=== PATIENT | female | born 1970 | race Caucasian/White ===

== ENCOUNTER 2019-05-04 00:01 | Observation (INO) ==
[2019-05-04 01:05] LABS: URINE SOURCE CLEAN CATCH
[2019-05-04 01:09] LABS: BASO# 0.01 X1000 (0.0-0.2); BASO% 0.1 % (0.0-0.8); EOS% 1.2 % (0.0-10.0); HEMATOCRIT 41.6 % (37.0-47.0); LYMPH# 2.48 X1000 (1.2-3.4); LYMPH% 30.1 % (20.5-51.1); MCH 28.5 PG (27-31); MCHC 33.7 g/dL (33-37); MCV 84.7 FL (81-99); MONO# 0.51 X1000 (0.11-0.59); MONO% 6.2 % (1.7-9.3); MPV 9.9 FL (7.4-10.4); NEUT# 5.15 X1000 (1.4-6.5); NEUT% 62.4 % (42.2-75.2); PLT 227 X1000 (130-400); RBC 4.91 XMIL (4.2-5.4); RDW 12.9 % (11.5-14.5); WBC 8.25 X1000 (4.8-10.8)
[2019-05-04 01:10] LABS: BILIRUBIN URINE NEGATIVE (NEGATIVE); BLOOD URINE NEGATIVE (NEGATIVE); COLOR YELLOW; GLUCOSE URINE NEGATIVE (NEGATIVE); KETONE URINE NEGATIVE (NEGATIVE); LEUKOCYTES URINE NEGATIVE (NEGATIVE); NITRITE URINE NEGATIVE (NEGATIVE); PROTEIN URINE NEGATIVE (NEGATIVE); SP GRAVITY URINE 1.013; TURBIDITY URINE CLEAR (CLEAR); UR EPITHELIAL CELLS <10 /HPF (<10); URINE BACTERIA NEGATIVE /HPF; URINE RBC <10 /HPF (<10); URINE WBC <10 /HPF (<10); UROBILINOGEN URINE NORMAL (NORMAL)
--- NOTE | 2019-05-04 01:13 | EKG Report ---
Test Performed on : 05/04/2019 00:11:26 AM Test Reason : Heart flutters/ history of heart issues Blood Pressure : / mmHG Vent. Rate : 087 BPM Atrial Rate : 087 BPM P-R Int : 186 ms QRS Dur : 092 ms QT Int : 386 ms P-R-T Axes : 009 054 063 degrees QTc Int : 464 ms Normal sinus rhythm. Normal ECG When compared with ECG of 04-OCT-2017 09:21, No significant change was found Unconfirmed Result
[2019-05-04 01:34] LABS: AGAP 16; ALB/GLOB RATIO 2.2; ALBUMIN 4.8 g/dL (3.5-5.0); ALKALINE PHOSPHATASE 66 U/L (32-104); BUN 11 mg/dL (8-22); CHLORIDE 102 mmol/L (98-107); COSMO 283; CREATININE 0.9 mg/dL (0.5-0.9); ESTIMATED GFR > 60; GLUCOSE 109 mg/dL (70-104); GOT 17 U/L (10-30); GPT 10 U/L (10-36); SODIUM 142 mmol/L (136-145); TCO2 24 mmol/L (25-35); TOTAL BILIRUBIN 0.36 mg/dL (0.20-1.00)
[2019-05-04] MEDS ORDERED: NS 1,000 ML IV ONE (01:53)
[2019-05-04] MEDS ORDERED: CARAFATE LIQUID PO ONE (01:53)
[2019-05-04] MEDS ORDERED: ZOFRAN IV ONE (01:53)
--- NOTE | 2019-05-04 03:04 | PROVIDER DOCUMENTATION ---
This chart was entered by Kirt Macario Scribe, acting as scribe for Saul Steiner MD. HPI-General Adult - General Chief Complaint: Anxiety Stated Complaint: HEART FLUTTERS/HISTORY OF HEART PROBLEMS Time Seen by Provider: 05/04/19 00:20 Source: patient Allergies/Adverse Reactions: Patient Allergies Allergy/AdvReac Type Severity Reaction Status Date / Time metronidazole [From Flagyl] Allergy Unknown HIVES Verified 07/29/18 14:03 Metronidazole HCl * Allergy Unknown HIVES Verified 07/29/18 14:03 [From Flagyl] sulfamethoxazole AdvReac CONSTIPATIO Verified 05/04/19 00:42 [From Bactrim] N trimethoprim [From Bactrim] AdvReac CONSTIPATIO Verified 05/04/19 00:42 N Home Medications: Home Medication List Medication Instructions Recorded Confirmed Last Taken Type Metoprolol Tartrate 100 mg PO BID 08/04/16 05/04/19 04/09/17 History Flecainide [Tambocor] 50 mg PO BID 05/04/19 05/04/19 Unknown History Pantoprazole [Protonix] 40 mg PO DAILY@0700 #30 tab 05/04/19 Unknown Rx - History of Present Illness -Gen Adult Nature of Presenting Problems: Pt is a 48 yof who presents to the ED with a CC of anxiety. Pt reports she has had a 'fluttering' in her lt chest/abdomen for two days. Pt denies any pain and describes it as a discomfort. Pt reports some recent stressors in her home life. Pt reports a hx of HTN. Pt denies any chest pain and shortness of breath. Pt also complains of urinary frequency and dysuria. Pt reports taking an old antibiotic prescription lately for a possible kidney infection. Location of Pain/Injury: reports: chest, generalized Pain Radiation: reports: no radiation Quality of Pain: reports: dull Severity: reports: mild Onset/Duration: reports: 2 days ago Timing: reports: still present Associated Symptoms: reports: anxiety, other Similar Symptoms Previously?: Yes Recently seen or treated by another doctor?: No Review of Systems - Adult - REVIEW OF SYSTEMS - ADULT Constitutional: reports: see HPI Eyes: reports: no symptoms reported Ears, Nose, Mouth & Throat: reports: no symptoms reported Cardiovascular: reports: see HPI, palpitations Respiratory: reports: no symptoms reported Gastrointestinal: reports: no symptoms reported Genitourinary: reports: no symptoms reported Musculoskeletal: reports: no symptoms reported Integumentary: reports: no symptoms reported Neurological: reports: no symptoms reported Psychiatric: reports: see HPI, anxiety Endocrine: reports: no symptoms reported Hematologic/Lymphatic: reports: no symptoms reported Allergic/Immunologic: reports: no symptoms reported All Other Systems: Reviewed and Negative Past History - Adult - PAST MEDICAL HISTORY-ADULT Review of Records: reports: Old Records Reviewed, Nursing Assessment Review, Medications Reviewed, Social history reviewed & non-contributory. Major Childhood Illnesses: reports: denies history Cardiovascular: reports: arrhythmia (SVT), HTN, hyperlipidemia Respiratory: reports: denies history Gastrointestinal: reports: denies history Obstetrical/Gynecological: reports: denies history Genitourinary: reports: denies history Musculoskeletal: reports: denies history Neurological: reports: denies history Endocrine/Immune: reports: denies history Other Conditions: reports: denies history - PRIOR SURGERIES/PROCEDURES Surgical/Procedure History: reports: BTL, other (NOVASURE) - IMMUNIZATION STATUS Childhood Immunizations: See Nurse Assessment Flu Vaccine: See Nurse Assessment - FAMILY HISTORY Family History: reviewed, not pertinent - SOCIAL HISTORY Smoking: denies, non-smoker, quit greater than 1 year Substance Use: none/never, denies Alcohol Use Frequency: never Physical Exam-General - PHYSICAL EXAM-ADULT Initial Vital Signs Reviewed: Yes - CONSTITUTIONAL General Appearance: alert, mild distress - EYES Eyes: PERRL/EOMI, pink conjunctivae - HEAD, EARS, NOSE, MOUTH & THROAT HENMT: normocephalic/atraumatic, moist mucous membranes - NECK Neck: non-tender, full range of motion, supple - RESPIRATORY Respiratory: chest non-tender, lungs clear, normal breath sounds, no pleuratic chest pain, no respiratory distress, no accessory muscle use - CARDIOVASCULAR Cardiovascular: normal peripheral pulses, regular rate, rhythm, no edema, no gallop - GASTROINTESTINAL (ABDOMEN) Abdominal Exam: soft, tenderness - MUSCULOSKELETAL Extremity: normal range of motion, non-tender - SKIN Integumentary: normal color, warm/dry - NEUROLOGIC Neurologic: grossly normal, no motor/sensory deficits - PSYCHIATRIC Psych/Mental Status: normal mood/affect, normal thought content, normal thought process, oriented x 3 Progress - PLAN OF CARE/RESULTS Progress/Plan/Lab Results: Vital Signs - 8 hr 11/15/19 00:10 Temperature 98.4 F Pulse Rate 85 Respiratory Rate 18 Blood Pressure 173/106 O2 Sat by Pulse Oximetry 98 Orders Category Date Time Status EKG [EKG] Stat Ther 05/04/19 00:06 Ordered At recheck, pt noted palpitations and repeat ekg shows bigeminy. Pt agrees to be admitted. Result Diagrams: 05/04/19 00:51 05/04/19 00:51 - EKG 1 Time of EKG reading by physician:: 12:20 EKG Read and Signed by:: Saul Steiner Rate: 87 Rhythm: NSR [place]: normal QRS: normal MT Interval: normal ST Wave: normal - CONSULTS/PCP/HOSPITALIST Notification #1 *Consult/PCP/Hospitalist*: Dr Rosales Time Discussed: 03:24 Consult Disposition: Will see in ED, Admit Departure - Departure Date of Disposition Decision: 05/04/19 Time of Disposition Decision: 03:02 DIAGNOSIS: GERD (gastroesophageal reflux disease), Arrhythmia, Bigeminy Disposition: ADMITTED INPATIENT 09 Certified Medical Emergency: Emergent Condition: Fair Additional Instructions: Follow up with your DR in 1-2 days, to eR sooner if worse. ED Follow Up Instructions: You have been treated by a care provider in the Emergency Department. These instructions are being provided to you so you can have an understanding of how to care for yourself upon discharge. Upon discharge from the Emergency Department, you are responsible for making arrangements for follow-up care by a physician of your choice. Take all prescribed medications as directed. Return to the Emergency Department immediately for any new or worsening symptoms. You may call the Physician Referral phone number at [phone] to obtain a list of Physicians who are taking new patients. Prescriptions: Pantoprazole [Protonix] 40 mg PO DAILY@0700 #30 tab Referrals and Follow-Ups: None,PCP [Primary Care Provider] - - Critical Care Note This patient required my direct & personal management of CC.: No Attestation - Physician/ [place] Attestation Patient care was provided by Advanced Practice Provider:: No The physician spent face to face time with patient:: Yes Advanced Practice Provider documentation review:: Supervising physician onsite and consulted in the evaluation and care of this patient. The physician did have a face to face encounter with the patient. This chart was documented by the indicated scribe, (Kirt Macario, Alec) and accurately reflects the services I performed and decisions made by me, Saul Steiner MD, as attested by the provider's signature.
[2019-05-04] MEDS ORDERED: LOPRESSOR PO ONE (03:42)
[2019-05-04] MEDS ORDERED: ZOFRAN IV PRN (04:24)
[2019-05-04] MEDS ORDERED: TYLENOL PO PRN (04:24)
[2019-05-04] MEDS ORDERED: LOVENOX SUBQ SCH (04:24)
[2019-05-04 04:57] LABS: UR AMPHETAMINES QUAL NONE DETECTED (NONE DETECT); UR BARBITUATES QUAL NONE DETECTED (NONE DETECT); UR BENZODIAZEPIN QUAL NONE DETECTED (NONE DETECT); UR CANNABINOIDS QUAL NONE DETECTED (NONE DETECT); UR COCAINE QUAL NONE DETECTED (NONE DETECT); UR METHADONE QUAL NONE DETECTED (NONE DETECT); UR OPIATES QUAL NONE DETECTED (NONE DETECT); UR OXYCODONE QUAL NONE DETECTED (NONE DETECT); UR PCP QUAL NONE DETECTED (NONE DETECT)
--- NOTE | 2019-05-04 05:09 | HISTORY AND PHYSICAL ---
Patient of Dr. Marcio Shaw's office. REASON FOR ADMISSION: Ms. Lashawn Mahoney is a 48-year-old woman with past medical history of hypertension and PSVT (paroxysmal supraventricular tachycardia). She is followed by Dr. Marcio Shaw. She reports that today this afternoon and in the evening, she has been experiencing frequent episodes of fluttering of the heart with no chest pain or lightheadedness however. She states that these episodes have become more prolonged, and she desired to get evaluated the early hours of this morning. On arrival here, however, she was found to be with heart rate in the 80s. Initial EKG showed normal sinus rhythm with nonspecific ST-wave changes. The ER team was about to discharge her when they noticed that on the strip she had developed bigeminy, and the EKG confirmed this. The patient says she now feels anxious and agitated, but still denies any cardiorespiratory or anginal-type symptoms at this time. She denies any lower extremity redness or pain. No PND or orthopnea. No fever or chills. She is not quite sure of she took her second dose of metoprolol 100 mg this evening however nor is she sure if she took flecainide when the onset of these symptoms started. REVIEW OF SYSTEMS: Twelve system review was done with positive findings per HPI. No heat intolerance. ALLERGIES: Flagyl and sulfa. FAMILY HISTORY: Notable for heart disease, but no diabetes. SOCIAL HISTORY: Does not smoke, drink, or use illicit drugs. PAST SURGICAL HISTORY: Uterine ablation. LABORATORY: White count 8000, hemoglobin and hematocrit 14 and 41, and platelets 227,000. Normal differential. BUN 11, creatinine 0.9 and glucose 109. Troponin is negative. ProBNP 445. Urinalysis is clean. Chest film is normal. EKG: See HPI. PHYSICAL EXAMINATION: VITAL SIGNS: Blood pressure 173/106, heart rate 85, respirations 18, temperature 98.4. She is 98% on room air. GENERAL: She is an overweight middle-aged woman who is very anxious. She has normal mood and affect. HEENT: Head is normocephalic, atraumatic. Eyes: MEJIA. EOMI. She is anicteric, and not pale. ENT exam is grossly normal. NECK: Supple. No JVD or carotid bruit. No thyromegaly. CHEST: Clear when auscultated with good air entry both lung zarate. CARDIOVASCULAR: First and 2nd sounds heard. No gallops or rubs. Regular. ABDOMEN: Slightly protuberant. Soft, nontender. No organomegaly. Bowel sounds are normal. RECTAL: Deferred at this time. EXTREMITIES: Patient has no extremity swelling or redness. Good distal pulse. Volumes regular. Symmetrical. NEUROLOGICAL: No gross focal deficits. No tremors. No myoclonus. SKIN: Intact. No breakdown, lesion, or erythema with good turgor. MUSCULOSKELETAL: Exam is grossly normal. ASSESSMENT: 1. PSVT. 2. Bigeminy. 3. Uncontrolled hypertension. 4. Anxiety. PLAN: Patient will be admitted for further cardiac evaluation. I suspect bigeminy noted may be related to the fact that the patient did not take PVC suppressive medications i.e. metoprolol and flecainide. However, I do think an echocardiogram to assess structural disease is reasonable and maybe modification of her medications by Dr. Shaw is also needed. He has been consulted, and maybe patient may need some kind of ablative therapy if deemed necessary by Dr. Shaw. For now, resume home medications. Check a TSH, urine drug screen, and electrolytes for now. The patient declined any anti anxiolytics at this point in time. cc: Yissel Rosales MD
--- NOTE | 2019-05-04 05:36 | EKG Report ---
Test Performed on : 05/04/2019 03:03:57 AM Test Reason : palpitations Blood Pressure : / mmHG Vent. Rate : 070 BPM Atrial Rate : 070 BPM P-R Int : 144 ms QRS Dur : 082 ms QT Int : 438 ms P-R-T Axes : 057 044 042 degrees QTc Int : 473 ms Sinus rhythm. with frequent premature ventricular complexes. in a pattern of bigeminy. Otherwise normal ECG When compared with ECG of 04-MAY-2019 00:11, (Unconfirmed) premature ventricular complexes. are now present Unconfirmed Result
--- NOTE | 2019-05-04 07:48 | Diag Imaging Result Doc PS360 ---
EXAM: CHEST-1 VIEW INDICATION: palpitations TECHNIQUE: One view COMPARISON: 10/04/2017 FINDINGS: The lungs are grossly clear. There is no discrete pleural fluid collection or pneumothorax. The cardiomediastinal silhouette and central vasculature are grossly unremarkable. IMPRESSION: No evidence of acute pathology by plain radiograph. Electronically signed by Eyal Mendieta 05/04/2019 7:46 AM
[2019-05-04] MEDS ORDERED: TAMBOCOR PO SCH (09:00)
[2019-05-04] MEDS ORDERED: NS 1,000 ML IV SCH (09:00)
[2019-05-04] MEDS ORDERED: LOPRESSOR PO SCH (09:00)
[2019-05-04 15:31] VITALS: BP 150/94
--- NOTE | 2019-05-04 15:54 | Diag Imaging Result Document ---
PROCEDURE NAME: MYOCARDIAL PERF SCAN, STR/REST - 05/04/2019 INDICATION: Chest pain. PROCEDURES PERFORMED: 1. Bharat protocol stress. 2. One-day stress rest myocardial perfusion imaging. FINDINGS: BHARAT PROTOCOL STRESS RESULTS: 1. Baseline EKG shows sinus rhythm. Patient had PVCs in a pattern of bigeminy. 2. Patient exercised for a total of 10 minutes 1 second, achieving a peak heart rate of 148 which was 86% of age predicted max. She achieved 11.7 METS and stage IV of the Bharat protocol. Exercise capacity was 135% of age and sex predicted exercise capacity. 3. Appropriate blood pressure response to exercise. 4. Test was terminated due to fatigue. 5. There is no clear evidence of anginal complaints occurring during the course of study. 6. No ischemic related EKG changes or significant arrhythmias. Patient had scattered PVCs that seemed to suppress during the course of exercise. PERFUSION IMAGING RESULTS: 1. There is no evidence of abnormal extracardiac uptake. 2. The TID ratio is 0.91. 3. Perfusion imaging demonstrates what appears to be normal homogeneous uptake of radiotracer throughout the myocardial segments. There is no evidence of stress-related defects. 4. Normal ejection fraction of 73%. End-diastolic volume 73, end systolic volume of 20. Normal wall motion. cc: MD Melany Linares PA
--- NOTE | 2019-05-04 16:35 | ECHO REPORT ---
ORDER DATE: 05/04/2019 INDICATION: Ventricular arrhythmias. FINDINGS: 1. Right atrium is mildly enlarged at 4 cm. 2. Mild tricuspid regurgitation. RV systolic pressure of 37. 3. Normal RV size and systolic function. 4. Trace pulmonic insufficiency. 5. Normal left atrial size with a volume index of 20. 6. No mitral prolapse. Trace mitral regurgitation. No evidence of mitral stenosis. 7. Normal LV size, end-diastolic dimension of 5.2. Normal wall thicknesses with a posterior and interventricular septal wall thickness of 0.9 cm each. Normal LV systolic function. Estimated EF of 60%. There is no clear evidence of significant segmental wall motion abnormalities. 8. Aortic valve opens well. It is trileaflet. No evidence of stenosis or insufficiency. 9. Aorta appears normal in visualized segments. 10. No pericardial effusion seen. cc: MD Sriram Linares MD
--- NOTE | 2019-05-04 19:53 | CARDIOLOGY CONSULTATION ---
DATE: 05/04/2019 CHIEF COMPLAINT: Palpitations, atypical chest discomfort. PRIMARY ENVIRONMENTAL RESEARCH SCIENTIST: Marcio Shaw MD PRIMARY SERVICE: Rosa Bagley MD HISTORY: Ms. Mahoney is a 48-year-old female who presented to the ER last night after having a busy day at work. She drank a cup of ice coffee and then she started noticing fluttering in the chest under the left breast. This went off and on intermittently for several hours, and because of that, she got really worried and decided to come in for evaluation. She was seen in the ER at about midnight this morning, and they did an EKG that showed really nothing remarkable other than the proBNP level being slightly elevated at 445 pg/mL. Subsequently, she demonstrated frequent PVCs in a bigeminy pattern. Because of that, she was kept in the hospital for evaluation. PAST MEDICAL HISTORY: The patient has a past history of paroxysmal supraventricular tachycardia, overweight with body mass index of 26.1, and hypertension. PAST SURGICAL HISTORY: The patient has a history of uterine ablation. SOCIAL HISTORY: She is single, works full-time. She actually has 2 jobs. She smokes some, drinks some coffee. FAMILY HISTORY: Father had coronary heart disease. Mother had also coronary heart disease. HOME MEDICATIONS: Included flecainide 50 mg twice a day, metoprolol 100 mg twice a day. She also takes Protonix. ALLERGIES: She is allergic to sulfamethoxazole/trimethoprim, metronidazole. REVIEW OF SYSTEMS: Generally, she is active. She has no difficulties. The episode that happened yesterday was kind of unusual for her. PHYSICAL EXAMINATION: Vital signs: Blood pressure 179/83, temperature 97.6 degrees, pulse 68, respirations 16. General: She is awake, alert, oriented, in no distress. HEENT: Unremarkable. Chest: Sounds clear to auscultation and percussion. Heart: Sounds are regular and rhythmic. I do not hear any gallop or murmur. Abdomen: Obese, nontender. Extremities: Show good pulses. No peripheral edema. Neurologic: Nonfocal, moves 4 extremities. LABORATORY DATA: Sodium and potassium normal. BUN and creatinine normal. Troponins several of them have been done and negative. DIAGNOSTIC DATA: Her chest x-ray in the ER showed no evidence of pathology. EKG in the ER first one showed sinus rhythm with no abnormalities. Her echocardiogram was done today. I have reviewed it, and I do not see any major abnormality. Her stress test that was done today basically shows normal myocardial perfusion, normal ejection fraction of left ventricle. IMPRESSION: 1. Patient who presents with palpitations more than anything else with evidence of ventricular arrhythmia in the form of ventricular bigeminy noted on telemetry. 2. Hypertension. 3. Overweight. 4. History of tobacco abuse. 5. History of Supraventricular tachycardia. 6. Family History of premature ischemic heart disease. RECOMMENDATIONS: At this time, we will go ahead and increase her flecainide to 100 mg twice a day to try to suppress the PVCs. We will continue metoprolol. We will arrange for a Holter monitor on Tuesday morning at the office. She will follow up with Dr. Marcio Shaw thereafter. The patient is probably a good candidate for EVAN inhibitor. I may suggest to her to take ramipril down the road. She will be discussing this with Dr. Shaw at upcoming visit. cc: Sriram Watson MD MTDD
--- NOTE | 2019-05-05 16:06 | DISCHARGE SUMMARY ---
ADMISSION DATE: 05/04/2019 DISCHARGE DATE: 05/04/2019 DISPOSITION: Home. FOLLOWUP: Will be with Dr. Marcio Shaw on 06/01/2019. CONSULTATION: Cardiology was consulted. Patient was seen by Dr. Watson. IMAGING STUDIES OF SIGNIFICANCE: 1. A chest x-ray showed no evidence of acute pathology. 2. A myocardial perfusion scan showed ejection fraction of 73%. No evidence of stress-induced ischemia. 3. An echocardiogram showed an ejection fraction of 60%, no clear evidence of significant segmental wall motion abnormality, the valves were unremarkable. ADMISSION DIAGNOSIS: 1. Paroxysmal supraventricular tachycardia. 2. Bigeminy. 3. Uncontrolled hypertension. 4. Anxiety. DIAGNOSIS AT THE TIME OF DISCHARGE: 1. Paroxysmal supraventricular tachycardia on metoprolol and flecainide, follows up with Dr. Marcio Shaw. 2. Bigeminy. 3. Hypertension. 4. Anxiety. 5. Clinical volume depletion. DISCHARGE MEDICATIONS: 1. Metoprolol 100 mg b.i.d. 2. Flecainide has been increased to 100 mg b.i.d. 3. Pantoprazole 40 mg p.o. daily. PRESENTING COMPLAINT: Frequent episode of fluttering in the heart. HISTORY OF PRESENTING COMPLAINT: Ms Mahoney is a 48-year-old female with a history of paroxysmal supraventricular tachycardia who normally follows up with Dr. Marcio Shaw. She is on metoprolol and flecainide came to emergency room because she says she has been feeling tired recently. She has also been going through stress related situations. She drank some ice coffee on the morning of presentation and she felt the heart fluttering, came to the emergency department. She was evaluated, was found initially to be in sinus. She was hydrated and was about to be discharged. However, at the time of discharge she was found to have bigeminy on her tracing so she was advised to be observed overnight. This morning she refers to be doing slightly better. Has not felt any more fluttering. She remains in bigeminy. She has been evaluated by Cardiology (Dr. Watson). I have spoken directly with Dr. Watson and he recommends that patient's echocardiogram and stress test are within normal range so she can be discharged and follow up with them in the office and that he would recommend that a 30 day event monitor is placed on her for further cardiac monitoring. Ms Mahoney is therefore going to be discharged. The commercial administrator will be will be arranged by Cardiology to be delivered at her house and she will follow up with Dr. Marcio Shaw. She is currently asymptomatic and her vitals blood pressure is 150/94, pulse of 74, respiration is 20, temperature 97.5 degrees. We think she is in stable condition to be discharged. All the discharge instructions have been discussed with her and she voiced understanding. TIME SPENT: 35 minutes. cc: Marcio Shaw MD
== END 2019-05-04 16:59 | disposition home or self-care (01) ==
LOC: 3N 00:01 → ED 00:01 → SUATTDRO 00:02
PROVIDERS: ATTEND Internal Medicine